=== PATIENT | female | born 1990 | race Caucasian/White ===

== ENCOUNTER 2019-06-02 16:54 | Emergency (ER) | payer BC ==
--- NOTE | 2019-06-02 17:45 | ED ---
Extremity Problem HPI - General Chief complaint: Extremity Problem,Nontraumatic Stated complaint: rt arm pain Time Seen by Provider: 06/02/19 17:06 Source: patient Mode of arrival: ambulatory Limitations: no limitations - History of Present Illness Initial comments: Patient is a 29-year-old female presenting to the emergency Department complains of right shoulder pain 5 days. Patient states she woke up 5 days ago with some right upper shoulder soreness. Patient thought she might a just slept on her shoulder wrong. Over the course of the past week her pain has increased and she is now having radiating pain into her right elbow. Patient denies any falls or trauma to her right shoulder. Denies any previous injuries or surgeries to her right shoulder or elbow. Patient states she does work 2 jobs and uses her arms a lot. Patient states she did call off to her job tonight and is requesting a work note. She denies any fever, chills. Patient has no other complaints at this time. Upon arrival to the ER, vital signs are stable. - Related Data Previous Rx's Medication Instructions Recorded Ciprofloxacin HCl [Cipro] 250 mg PO Q12HR #14 tablet 05/07/14 Phenazopyridine [Pyridium] 100 mg PO TID #6 tablet 05/07/14 Cyclobenzaprine [Flexeril] 5 mg PO BID #10 tablet 06/02/19 Allergies Allergy/AdvReac Type Severity Reaction Status Date / Time No Known Allergies Allergy Verified 06/02/19 16:58 Review of Systems ROS Statement: Those systems with pertinent positive or pertinent negative responses have been documented in the HPI. ROS Other: All systems not noted in ROS Statement are negative. Past Medical History Past Medical History: No Reported History History of Any Multi-Drug Resistant Organisms: None Reported Past Surgical History: No Surgical Hx Reported Past Psychological History: No Psychological Hx Reported Smoking Status: Current every day smoker Past Alcohol Use History: None Reported Past Drug Use History: None Reported General Exam - General Exam Comments Initial Comments: GENERAL: Well-appearing, well-nourished and in no acute distress. HEAD: Atraumatic, normocephalic. EYES: Pupils equal round and reactive to light, extraocular movements intact, sclera anicteric, conjunctiva are normal. ENT: Nares patent, oropharynx clear without exudates. Moist mucous membranes. NECK: Normal range of motion, supple without lymphadenopathy or JVD. LUNGS: Breath sounds clear to auscultation bilaterally and equal. No wheezes rales or rhonchi. HEART: Regular rate and rhythm without murmurs, rubs or gallops. EXTREMITIES: Pain with palpation of the right upper trap along with tightness. Patient has slightly decreased right shoulder range of motion secondary to pain. Patient has full elbow, forearm, wrist range of motion. There is no swelling or deformity seen. There is no overlying erythema. Patient is neurovascular intact. PSYCH: Normal mood, normal affect. SKIN: Warm, Dry, normal turgor, no rashes or lesions noted. Limitations: no limitations Course Vital Signs 06/02/19 06/02/19 06/02/19 16:56 16:58 18:10 Temperature 97.8 F Pulse Rate 72 65 Respiratory 18 20 18 Rate Blood Pressure 102/61 95/66 O2 Sat by Pulse 100 99 Oximetry Medical Decision Making - Medical Decision Making Patient is a 29-year-old female presenting with right upper shoulder pain times one week. No injuries or trauma to the shoulder or no previous surgeries. Patient is requesting a work note. Exam is consistent with a right upper trap muscle spasm. Patient will be given prescription for Flexeril and is told to keep the area. Patient can also take anti-inflammatories for her pain. Patient was given a work note for today. Patient stable for discharge at this time. Patient will follow-up with PCP if symptoms persist. She is agreeable with this plan of care. Case discussed with Dr. Garcia. Disposition Clinical Impression: Right shoulder pain Disposition: HOME SELF-CARE Condition: Stable Instructions (If sedation given, give patient instructions): Shoulder Pain (ED) Additional Instructions: Please return to the Emergency Department if symptoms worsen or any other concerns. Follow-up with PCP as symptoms persist. Continue with Motrin as needed for pain relief. Prescriptions: Cyclobenzaprine [Flexeril] 5 mg PO BID #10 tablet Is patient prescribed a controlled substance at d/c from ED?: No Referrals: None,Stated [Primary Care Provider] - 1-2 days
[2019-06-02 18:12] VITALS: BP 95/66; PULSE 65; RESP 18; TEMP 97.8
== END 2019-06-02 18:11 | disposition home or self-care (01) ==
LOC: EC 16:54
DX: M25.511 Pain in right shoulder (principal); M25.521 Pain in right elbow; F17.200 Nicotine dependence, unspecified, uncomplicated
CPT/HCPCS: 99283

== ENCOUNTER 2020-08-20 08:40 | Emergency (ER) | payer BC, OTHER ==
[2020-08-20 08:49] VITALS: BP 109/57; PULSE 71; RESP 16; TEMP 97.9
[2020-08-20] MEDS ORDERED: KETOROLAC 15 MG/ML 1 ML VIAL IM STA (09:06)
[2020-08-20] MEDS ORDERED: diazePAM 5 MG TAB PO STA (09:06)
--- NOTE | 2020-08-20 09:15 | ED ---
General Adult HPI - General Chief complaint: Back Pain/Injury Stated complaint: back pain Time Seen by Provider: 08/20/20 08:53 Source: patient, RN notes reviewed Mode of arrival: wheelchair Limitations: no limitations - History of Present Illness Initial comments: Patient is a 30-year-old female presented to the emergency room today with a chief complaint of increased lower back pain over the last 2 days. She does admit that she was at work when she was sitting a box down onto a pallet. She states it only approximately 5 pounds persistent spent about felt increased pain to the left lower side of the back. She does admit that she has some radicular pain going all the way down to the left ankle. Denies any bowel or bladder incontinence retention. Denies any saddle anesthesia. Patient states that the pain is worse with movements. She's tried some anti-inflammatories also tried a Flexeril last night several bleed. Patient denies any other complaints or symptoms currently. Patient denies any recent fever, chills, shortness of breath, chest pain, abdominal pain, nausea or vomiting, numbness or tingling, dysuria or hematuria, constipation or diarrhea, headaches or visual changes, or any other complaints. - Related Data Home Medications Medication Instructions Recorded Confirmed Cyclobenzaprine [Flexeril] 5 mg PO ONCE PRN 08/20/20 08/20/20 Ibuprofen [Motrin Ib] 800 mg PO ONCE PRN 08/20/20 08/20/20 Previous Rx's Medication Instructions Recorded Ibuprofen [Motrin] 800 mg PO Q6HR #30 tab 08/20/20 dexAMETHasone [Dexamethasone] 0.75 mg PO DIRECTED #12 tablet 08/20/20 methocarbamoL [Robaxin] 1,000 mg PO TID PRN 5 Days #30 tab 08/20/20 Allergies Allergy/AdvReac Type Severity Reaction Status Date / Time No Known Allergies Allergy Verified 08/20/20 10:20 Review of Systems ROS Statement: Those systems with pertinent positive or pertinent negative responses have been documented in the HPI. ROS Other: All systems not noted in ROS Statement are negative. Past Medical History Past Medical History: No Reported History History of Any Multi-Drug Resistant Organisms: None Reported Past Surgical History: No Surgical Hx Reported Past Psychological History: No Psychological Hx Reported Smoking Status: Current every day smoker Past Alcohol Use History: None Reported Past Drug Use History: None Reported General Exam - General Exam Comments Initial Comments: General: The patient is awake and alert, in no distress, and does not appear acutely ill. Eye: extra-ocular movements are intact. There is normal conjunctiva bilaterally. No signs of icterus. Ears, nose, mouth and throat: There are moist mucous membranes and no oral lesions. Neck: The neck is supple, there is no tenderness or JVD. Respiratory: respirations are non-labored, breath sounds are equal. No wheezes, stridor. Musculoskeletal: Normal appearance of thoracic lumbar spine with no step-off or deformity. Patient does have some tenderness in the lumbar spine beginning at the L2 down to the S1 area. Does have increased paravertebral tenderness on the left side of the lumbar spine. Patient shows good range of motion but pain is reproduced with movements. Neurological: A&O x 3. CN II-XII intact, There are no obvious motor or sensory deficits. Coordination appears grossly intact. Speech is normal. Skin: Skin is warm and dry and no rashes or lesions are noted. Psychiatric: Cooperative, appropriate mood & affect, normal judgment. Limitations: no limitations Course Vital Signs 08/20/20 08:46 Temperature 97.9 F Pulse Rate 71 Respiratory 16 Rate Blood Pressure 109/57 O2 Sat by Pulse 100 Oximetry Medical Decision Making - Medical Decision Making Patient's x-ray reviewed and does show degenerative changes. Results were disc ussed with patient. She does feel better after complications of Valium, Toradol here in the emergency room. Patient will be continued on anti-inflammatories, muscle relaxer, and a course of steroids due to the radicular pain. She is advised to follow with the family physician/orthopedics for further evaluation. Results were discussed with the patient. Patient states understanding and is in agreement. - Lab Data Lab Results 08/20/20 Range/Units 09:41 Urine HCG, Qual Not Detected (Not Detectd) Disposition Clinical Impression: Acute low back pain Disposition: HOME SELF-CARE Condition: Good Instructions (If sedation given, give patient instructions): Acute Low Back Pain (ED) Additional Instructions: Please use medication as discussed. Please follow-up with family doctor/orthopedics in the next 2 days. Please return to emergency room if the symptoms increase or worsen or for any other concerns. Prescriptions: dexAMETHasone [Dexamethasone] 0.75 mg PO DIRECTED #12 tablet Ibuprofen [Motrin] 800 mg PO Q6HR #30 tab methocarbamoL [Robaxin] 1,000 mg PO TID PRN 5 Days #30 tab PRN Reason: pain Is patient prescribed a controlled substance at d/c from ED?: No Referrals: None,Stated [Primary Care Provider] - 1-2 days Rashawn Gupta DO [Doctor of Osteopathic Medicine] - 1-2 days [facility] [NON-STAFF] - 1-2 days Time of Disposition: 10:45
--- NOTE | 2020-08-20 10:27 | XR ---
Lumbar spine HISTORY: Low back pain 5 views of the lumbar spine Lumbar vertebral bodies show preserved height, alignment, and bone mineralization. Some loss of disc height is present at L4-5, sclerosis is present in the posterior elements. Minimal spondylosis is pre sent. IMPRESSION: Degenerative disc disease, consider lumbar MRI
== END 2020-08-20 11:11 | disposition home or self-care (01) ==
LOC: EC 08:40
DX: M54.5 Low back pain (principal); F17.200 Nicotine dependence, unspecified, uncomplicated
CPT/HCPCS: 72100; 81025; 96372; 99283

== ENCOUNTER → 2020-09-29 | Outpatient (CLI) | payer MEDICAID ==
--- NOTE | 2020-09-29 14:07 | MR ---
EXAMINATION TYPE: MR lumbar spine wo con DATE OF EXAM: 09/29/2020 COMPARISON: Lumbar spine x-ray August 20, 2020 HISTORY: Low back pain. Pain for several years and 2 left lower extremity per patient. TECHNIQUE: Multiplanar, multisequence imaging of the lumbar spine is performed without IV contrast. FINDINGS: Sagittal images of the lumbar spine show vertebral body heights and alignment to appear sat isfactory. There is disc desiccation with mild disc space narrowing L4-L5 level otherwise is space he ights and hydration are maintained. Posterior annular tear L4-L5 level.. The conus medullaris is nor mal in position and signal ending at L1 level. The bone marrow signal intensity is within normal rodriguez its. Axial images show T12-L1, L1-L2, L2-L3, and L3-L4 levels all to appear within normal limits. Axial images at L4-L5 level mild facet arthropathy bilaterally. There is central disc protrusion mild ly effacing anterior thecal sac, there is patent bilateral neural foramina. Axial images at L5-S1 level appear within normal limits. Paraspinal muscle bulk is preserved. IMPRESSION: Focal degenerative change L4-L5 level otherwise unremarkable study
== END ==
LOC: RADMRIMAIN 13:01
PROVIDERS: ATTEND Orthopaedic Surgery
DX: M47.816 Spondylosis without myelopathy or radiculopathy, lumbar region (principal)
CPT/HCPCS: 72148

== ENCOUNTER 2020-10-28 11:52 | Day surgery (SDC) | payer OTHER ==
[2020-10-24 12:34] VITALS: BMI 27.4
[2020-10-28 12:15] VITALS: TEMP 98.3
[2020-10-28] MEDS ORDERED: LACTATED RINGERS 1,000 ML IV ONE (12:20)
[2020-10-28] MEDS ORDERED: LIDOCAINE 1% (10MG/ML) FOR IV START INTRADERMA ONE (12:20)
[2020-10-28] MEDS ORDERED: MIDAZOLAM 2 MG/2 ML VIAL ONE (13:00)
[2020-10-28] MEDS ORDERED: DEXAMETHASONE SOD PHOSPHATE 10 MG/ML 1 ML VIAL ONE (13:00)
[2020-10-28] MEDS ORDERED: fentaNYL (PF) 50 MCG/ML 2 ML AMP ONE (13:00)
[2020-10-28] MEDS ORDERED: LACTATED RINGERS 1,000 ML IV SCH (13:00)
[2020-10-28] MEDS ORDERED: IOPAMIDOL M200 10 ML VIAL ONE (13:00)
--- NOTE | 2020-10-28 13:17 | P.PCN ---
Date of Procedure: 10/28/20 Description of Procedure: PREOPERATIVE DIAGNOSIS: Lumbar radiculopathy, lumbar disc herniation . POSTOPERATIVE DIAGNOSIS: Lumbar radiculopathy, lumbar disc herniation. PROCEDURE: 1) left sideided L4-L5 epidural steroid injection under fluoroscopic guidance, 2) Epidurogram SURGEON: Manuel Chase [employer] SUPERVISOR: None ANESTHESIA: Local , and IV sedation: Midazolam 2 mg and fentanyl 50 mcg EBL: None. Specimen removed: None Fluoroscopic image: Saved to electronic medical records PROCEDURE INDICATION: The patient with continued lumbar pain radiating to right side knee area, and intervertebral disc disease without myelopathy that has failed to respond to adequate conservative management. Came here for repeat procedure. PROCEDURE DESCRIPTION: The patient was seen and identified in the preoperative area. Risks, benefits, complications, and alternatives were discussed with the patient. The patient agreed to proceed with the procedure and signed the consent. and vital signs were stable, but his high blood pressure due to anxiety, and not to increase blood pressure medication this morning. Patient was taken to the OR and time out was completed. The patient was placed in the prone position on procedure table and a pillow was placed under the abdomen to reduce lumbar lordosis. The lumbosacral area was prepped with ChloraPrep 1 and draped in the usual sterile fashion. Critical pause was taken. Vital signs were closely monitored during the procedure. Using 20 degree ipsilateral oblique fluoroscopy, the chin of the Lamont dog of L4 was identified, and the skin and deeper tissues just below was localized with 1% lidocaine. 22-guage 5-inch spinal needle were used for the procedure. The needle were guided by fluoroscopy just underneath the chin of the Lamont dog of L4. Under AP fluoroscopy, the needles were advanced to the 6 o'clock position of the L4 pedicle. After negative aspiration of CSF and blood and with no paresthesias, 1 mL of Isovue-200 contrast dye was injected at each level with excellent anterior epidural spread and outlining of the L4 nerve root. After negative aspiration 3 mL of block solution. Block solution contained 10 mg of dexamethasone, 2 mL of normal saline preservative-free. Needle was removed intact, skin was cleansed, and bandages were applied. COMPLICATIONS: None. DISPOSITION : The patient was placed in a supine position and transferred to the recovery area in a stable condition for observation and was discharged from the recovery room after meeting discharge criteria. Home discharge instructions given to the patient by the staff. The patient was reexamined prior to discharge. The patient will schedule follow-up in the clinic in 4 weeks' duration.
[2020-10-28] MEDS ORDERED: IV FLUID CONTINUATION 1,000 ML IV ONE (13:18)
[2020-10-28 13:20] VITALS: RESP 18
[2020-10-28 13:38] VITALS: BP 110/63; PULSE 73
--- NOTE | 2020-10-28 13:56 | FL ---
EXAMINATION TYPE: FL guided pain mgmt statistic DATE OF EXAM: 10/28/2020 HISTORY: Fluoroscopy time 5 seconds of fluoroscopy provided. IMPRESSION: 1. Fluoroscopy time.
== END 2020-10-28 14:06 | disposition home or self-care (01) ==
LOC: ORPAIN 11:52
DX: M51.16 Intervertebral disc disorders with radiculopathy, lumbar region (principal); Z79.1 Long term (current) use of non-steroidal anti-inflammatories (NSAID); Z88.8 Allergy status to other drugs, medicaments and biological substances
CPT/HCPCS: 81025; 64483; J2250; J1100; J3010; Q9966

== ENCOUNTER → 2021-09-21 | Outpatient (CLI) | payer MEDICAID, OTHER ==
[2021-09-21 10:30] VITALS: BP 116/75; PULSE 73; RESP 18; TEMP 97.7
--- NOTE | 2021-09-21 10:59 | P.PN ---
Subjective Progress Note Date: 09/21/21 Principal diagnosis: A 31 yr old female with mother at side with a history of severe and chronic low back pain secondary to lumbar degenerative disc diseases and lumbar spondylosis with facet arthropathy presents today for evaluation status post left TFESI L4- L5 approximately 10 months ago. Patient states she expressed 90% pain relief for 9 months status post procedure. Pain level is currently at 10 out of 10 in intensity, sharp, burning, pressure-type sensation in the left lower aspects of her lumbar spine. Pain is provoked by sitting or standing in one position for periods of 45 minutes or more. Patient presents with her mother at side and is using a walker for pain relief. Pain is alleviated with medications, topicals, injections, ice, heating pad use, physical therapy in 10/05, chiropractic treatments in 08/08, home exercise regimen, use of a walker for ambulation, repositioning, laying down supine, massage by her fianc and rest.. Interventional pain procedures completed include left TFESI L4-L5 #1 Patient is currently on [place] and Flexeril from Dr. Gupta Patient denies any side effects of the medication(s), denies excessive drowsiness or sleepiness, denies suicidal ideation and reports that the current pain medication is helping to control the pain and improve activities of daily living. Patient denies any motor or sensory deficits. Patient denies any fever or night sweats, denies any change in the bowel movements or urination. Physical Examination: -Constitutional: Cooperative. Not in acute distress . -HEENT: Neck is supple. No lymphadenopathy. No thyromegaly. Normal thyroid size. Eyes: No ptosis , no icterus, no photophobia. ENT: No auditory deficits. Normal oropharynx. No Thrush. - Respiratory: Chest clear to auscultations bilaterally. No wheezing. No rhonchi. - Cardiovascular: Regular rate and rhythm. S1 / S2 , no S3 , no S4. - Gastrointestinal: Abdomen soft no tenderness. Bowel sounds positive in all four quadrants. No organomegaly. - Genitourinary: Deferred. - Neurologic: Cranial nerve II to XII intact. No focal neurological deficits. - Psychatric: Alert & oriented x 3. Matching mood & appropriate affect. Judgment and insight intact. - Lymphatic: No Lymphadenopathy. - Musculoskeletal: Cervical spine: Muscle bulk/ tone/ strength in the bilateral upper extremities normal. Facet loading test cervical area positive. Lumbar spine: Motor bulk/ tone/ strength lower extremities , thigh and legs : 5/5 Deep tendon reflexes : Normal Knee Jerk. Normal Ankle Jerk . Vertebral body tenderness to palpation over L4 Lumbar Facet Loading Test positive Straight Leg Raise: positive at 30 degrees right side/ left side Gaenslen's Test positive Sacral spine : Severe tenderness over the Sacroiliac joint: right side / left side Range of motion: Flexion of the lumbar spine <60 degrees Range of motion: Extension of the lumbar spine <20 degrees Gaenslen's Test positive Davonte test: positive right side / left side Assessment and plan: Chronic low back pain secondary to lumbar degenerative disc disease , lumbar spondylosis with facet arthropathy without myelopathy Recommendation of L TFESI L4-L5. May need a series of injections, up to 3 within a six-month period, for optimal pain relief. Denies aspirin or anticoagulants use. Denies medical history of diabetes mellitus. Risks, benefits of procedure discussed and patient verbalized understanding. All patient questions answered MAPS reviewed and it was appropriate. I have spent 31 minutes on patient care today. Dr James was available by phone for the evaluation of this patient. The time was used to review the medical records including relevant urine studies and Prescription history (MAPs), review of the available imaging, evaluation and examination of the patient, coordination of care with the medical staff and if applicable referring physicians, as well as creation of the medical record Objective - Vital Signs Vital signs: Vital Signs Temp 97.7 F 09/21/21 10:17 Pulse 73 09/21/21 10:17 Resp 18 09/21/21 10:17 BP 116/75 09/21/21 10:17 Pulse Ox 97 09/21/21 10:17 PQRS Measure Charge Sheet Mode of Arrival: Ambulatory, Walker - Pain Location Lower Back Non-Pharmacological Interventions: Chiropractic Treatment, Heat, Ice, Physical Therapy, Position/Reposition, Stretching Pharmacological Interventions: Epidural, PRN Medication, Topical Medication PQRS Narrative: Smoking Status Current every day smoker Blood Pressure 116/75 Pain Intensity [Lower Back] 10 Scale Used Numeric (1 - 10) Hx Alcohol Use (MH) No Home Medications: Ambulatory Orders Acetaminophen [Tylenol Extra Strength] 1,000 mg PO DIRECTED PRN 10/24/20 Cyclobenzaprine [Flexeril] 10 mg PO DIRECTED PRN 10/24/20 HYDROcodone/APAP 5-325MG [[place] 5-325] 1 tab PO DIRECTED PRN 10/24/20 Ibuprofen [Motrin Ib] 400 - 800 mg PO DIRECTED PRN 10/24/20
== END ==
LOC: PNWHC3 09:52
PROVIDERS: ATTEND Physician Assistant Medical
DX: M51.36 Other intervertebral disc degeneration, lumbar region (principal); M47.816 Spondylosis without myelopathy or radiculopathy, lumbar region; G89.29 Other chronic pain; F17.200 Nicotine dependence, unspecified, uncomplicated; Z88.8 Allergy status to other drugs, medicaments and biological substances
CPT/HCPCS: 99211

== ENCOUNTER 2021-10-15 12:18 | Day surgery (SDC) | payer OTHER ==
[2021-10-13 12:10] VITALS: BMI 27.4
[2021-10-15 12:35] VITALS: RESP 16; TEMP 98.3
[2021-10-15] MEDS ORDERED: LACTATED RINGERS 1,000 ML IV ONE (12:36)
[2021-10-15] MEDS ORDERED: MIDAZOLAM 2 MG/2 ML VIAL ONE (12:38)
[2021-10-15] MEDS ORDERED: fentaNYL (PF) 50 MCG/ML 2 ML AMP ONE (12:38)
[2021-10-15] MEDS ORDERED: DEXAMETHASONE SOD PHOSPHATE 10 MG/ML 1 ML VIAL ONE (12:38)
[2021-10-15] MEDS ORDERED: IOPAMIDOL M200 10 ML VIAL ONE (12:38)
--- NOTE | 2021-10-15 12:56 | P.PCN ---
Date of Procedure: 10/15/21 Description of Procedure: PREOPERATIVE DIAGNOSIS: Lumbar radiculopathy POSTOPERATIVE DIAGNOSIS: Lumbar radiculopathy PROCEDURE 1. Transforaminal epidural steroid injection under fluoroscopic guidance left L4-L5 2. Lumbar epidurogram IMAGING Fluoroscopy was used, images where saved to the medical record ANESTHESIA: Local with 1% lidocaine 5 ml ; 2 mg of Versed and 100 g of fentanyl PROCEDURE DESCRIPTION / TECHNIQUE: The patient was seen and identified in the preoperative area. Risks, benefits, complications, and alternatives were discussed with the patient. The patient agreed to proceed with the procedure and signed the consent, vital signs were stable prior to the procedure. Patient was taken to the OR and time out was completed. The patient was placed in the prone position on procedure table and a pillow was placed under the abdomen to reduce lumbar lordosis. The lumbosacral area was prepped and draped in the usual sterile fashion. Vital signs were closely monitored during the procedure. Conscious sedation was used. Using oblique fluoroscopy, the chin of the "Lamont dog" at the pedicle and the skin and deeper tissues just below was localized with 1% lidocaine. Subsequently, a 22-gauge 3.5-inch spinal needle was advanced under a tunneled view fluoroscopic guidance just underneath the chin of the "Lamont dog". Under lateral fluoroscopy, the needle was then advanced to the posterior border interforaminal space. After negative aspiration of CSF and blood and with no paresthesias, 1 mL of Omnipaque-240 contrast dye was injected excellent epidu rogram. Subsequently, a solution totalling 2ml of dexamethasone and PFNS was injected after negative aspiration (total of 10mg of dexamethasone was used). The needle was removed intact. COMPLICATIONS: None DISPOSITION: The patient was placed in a supine position and transferred to the recovery area in a stable condition for observation. There was no evidence of lower extremity motor or sensory deficit after the procedure. Patient was discharged from the recovery room after meeting discharge criteria. Home discharge instructions were given to the patient by the staff. The patient was reexamined prior to discharge. Follow up as directed.
[2021-10-15] MEDS ORDERED: IV FLUID CONTINUATION 1,000 ML IV ONE (13:00)
[2021-10-15 13:15] VITALS: BP 106/69; PULSE 66
--- NOTE | 2021-10-15 13:29 | FL ---
Fluoroscopy HISTORY: Pain 6 seconds fluoroscopy time supplied to the referring clinician. 1 intraoperative C-arm images docume nt the procedure. See dictated report from anesthesia.
== END 2021-10-15 13:28 | disposition home or self-care (01) ==
LOC: ORPAIN 12:18
PROVIDERS: ATTEND Hospitalist
DX: M54.16 Radiculopathy, lumbar region (principal); Z91.09 Other allergy status, other than to drugs and biological substances
CPT/HCPCS: 81025; 64483; J2250; J1100; J3010; Q9966

== ENCOUNTER 2021-11-11 19:42 | Emergency (ER) | payer OTHER ==
[2021-11-11 19:59] VITALS: BP 98/68; PULSE 76; RESP 16; TEMP 98.6
--- NOTE | 2021-11-11 21:08 | CT ---
EXAMINATION TYPE: CT brain wo con DATE OF EXAM: 11/11/2021 COMPARISON: None HISTORY: Hit head on shelf this morning. CT DLP: 1059.4 mGycm Automated exposure control for dose reduction was used. Images of the brain obtained without contrast. Ventricles have normal size. There is no mass effect or midline shift. There is no sign of intracrani al hemorrhage. Calvarium is intact. Skull base is intact. There is normal aeration of the mastoid sin uses. IMPRESSION: Negative unenhanced head CT scan.
[2021-11-11] MEDS ORDERED: TOPICAL SKIN ADHESIVE 1 EACH AMP TOPICAL ONE (21:16)
--- NOTE | 2021-11-11 22:35 | ED ---
Head Injury HPI - General Chief complaint: Head Injury Stated complaint: Head Injury,Urgent Care sent pt in Time Seen by Provider: 11/11/21 21:10 Source: patient Mode of arrival: ambulatory Limitations: no limitations - History of Present Illness Initial comments: Patient is a 31-year-old female who presents for evaluation of head injury. Patient states she had her head on a shelf at home. No loss of consciousness. No blood thinner use. No visual symptoms, nausea, or vomiting. No headache, dizziness, or lightheadedness. Patient states she was sent from urgent care because of bump on her forehead from the incident. She was given a tetanus booster at urgent care. Patient also sustained a small laceration. She has no other concerns. - Related Data Home Medications Medication Instructions Recorded Confirmed No Known Home Medications 11/11/21 11/11/21 Allergies/Adverse reactions: Allergies Allergy/AdvReac Type Severity Reaction Status Date / Time methylprednisolone AdvReac Unknown Nausea & Verified 11/11/21 22:00 Vomiting Review of Systems ROS Statement: Those systems with pertinent positive or pertinent negative responses have been documented in the HPI. ROS Other: All systems not noted in ROS Statement are negative. Past Medical History Past Medical History: No Reported History Additional Past Medical History / Comment(s): lower back pain History of Any Multi-Drug Resistant Organisms: None Reported Past Surgical History: Section, Tonsillectomy Additional Past Surgical History / Comment(s): x2. PAIN CLINIC PROCEDURES, IUD. Past Anesthesia/Blood Transfusion Reactions: No Reported Reaction Past Psychological History: No Psychological Hx Reported Smoking Status: Current every day smoker Past Alcohol Use History: None Reported Past Drug Use History: None Reported - Past Family History Mother Family Medical History: No Reported History General Exam Limitations: no limitations General appearance: alert, in no apparent distress Head exam: Present: normocephalic, normal inspection, other (Small hematoma on the left frontal region. 1 cm laceration above the left eyebrow with no active bleeding) Eye exam: Present: normal appearance, PERRL, EOMI. Absent: scleral icterus, conjunctival injection, periorbital swelling Neck exam: Present: normal inspection, full ROM Respiratory exam: Present: normal lung sounds bilaterally. Absent: respiratory distress, wheezes, rales, rhonchi, stridor Cardiovascular Exam: Present: regular rate, normal rhythm, normal heart sounds. Absent: systolic murmur, diastolic murmur, rubs, gallop, clicks GI/Abdominal exam: Present: soft, normal bowel sounds. Absent: distended, tenderness, guarding, rebound, rigid Neurological exam: Present: alert, oriented X3, CN II-XII intact Psychiatric exam: Present: normal affect, normal mood Skin exam: Present: warm, dry, intact, normal color. Absent: rash Course Vital Signs 11/11/21 19:54 Temperature 98.6 F Pulse Rate 76 Respiratory 16 Rate Blood Pressure 98/68 O2 Sat by Pulse 98 Oximetry Medical Decision Making - Medical Decision Making This is a 31-year-old female who presents for evaluation of head injury. Thorough history and examination were performed. Patient is well-appearing and in no apparent distress. No headache, visual symptoms, nausea, or vomiting. This is a low-impact head injury however triage did order a CT of the brain since it was requested by urgent care. Patient does have a small hematoma in the left frontal region. A 1 cm laceration is also noted about the left eyebrow. CT is negative for acute process. Laceration was explored and irrigated extensively. It was well approximated with Exofin. Tetanus booster is not indicated. Patient will be discharged with instruction to follow up with primary care provider. Concussion and hematoma education was provided. Patient verbalizes understanding and is agreeable to this plan. Dr. Mott is my attending. Disposition Clinical Impression: Head injury, Laceration, Hematoma Disposition: HOME SELF-CARE Condition: Good Instructions (If sedation given, give patient instructions): Laceration (ED) Additional Instructions: Please keep wound clean and dry. Return to the emergency department if you experience new, concerning, or worsening symptoms. Is patient prescribed a controlled substance at d/c from ED?: No Referrals: None,Stated [Primary Care Provider] - 1-2 days Time of Disposition: 22:35
== END 2021-11-11 22:57 | disposition home or self-care (01) ==
LOC: EC 19:42
DX: S01.81XA Laceration without foreign body of other part of head, initial encounter (principal); F17.200 Nicotine dependence, unspecified, uncomplicated; W22.8XXA Striking against or struck by other objects, initial encounter
CPT/HCPCS: 12011; 70450; 99283

== ENCOUNTER → 2022-05-12 | Outpatient (CLI) | payer OTHER ==
[2022-05-12 12:50] VITALS: BP 118/77; PULSE 88; RESP 18; TEMP 98.2
--- NOTE | 2022-05-12 14:27 | P.PAINPG ---
Objective - Vital Signs Vital signs: Intake & Output 05/11/22 05/12/22 05/12/22 18:59 06:59 18:59 Weight 79.379 kg PQRS Measure Charge Sheet Comment: A 31 yr old female with a history of severe and chronic low back pain secondary to lumbar degenerative disc diseases and lumbar spondylosis with facet arthropathy without myelopathy presents today for evaluation s/p L TFESI L4-L5 PT states she experienced 90% pain relief x 6 mo s/p procedure. Pain level is currently at 4 /10 in intensity, constant, L lower lumbar spine, sharp in character w shooting towards the L buttock and LLE. Pain is provoked as high as 8/10 by bending, pushing, lifting. Pain is alleviated with PT x 6 wks which ended in Aug 2020, chiropractic treatment x 1 in Aug 2021, heat, ice, medications (Ibu, Tyl), topicals, home guided stretching, home inversion table use for 30 sec periodically, repositioning and rest. Interventional pain procedures completed include L TFESI L4-L5 Patient is currently on Tylenol, Ibuprofen Patient denies any side effects of the medication(s), denies excessive drowsiness or sleepiness, denies suicidal ideation and reports that the current pain medication is helping to control the pain and improve activities of daily living. Patient denies any motor or sensory deficits. Patient denies any fever or night sweats, denies any change in the bowel movements or urination. Physical Examination: -Constitutional: Cooperative. Not in acute distress . - Neurologic: Cranial nerve II to XII intact. No focal neurological deficits. - Psychatric: Alert & oriented x 3. Matching mood & appropriate affect. Judgment and insight intact. - Musculoskeletal: Cervical spine: Muscle bulk/ tone/ strength in the bilateral upper extremities normal Vertebral body tenderness to palpation over Spurling test positive Distraction test positive Facet loading test positive Thoracic spine Muscle bulk / tone/ strength in the bilateral paraspinal muscles normal Vertebral body tender to palpation over Facet loading test positive Lumbar spine: Motor bulk/ tone/ strength lower extremities , thigh and legs : 5/5 Deep tendon reflexes : Normal Knee Jerk. Normal Ankle Jerk . Vertebral body tenderness to palpation over L4 Lumbar Facet Loading Test positive Straight Leg Raise: positive at 30 degrees right side/ left side Gaenslen's Test positive Sacral spine : Severe tenderness over the Sacroiliac joint: right side / left side Range of motion: Flexion of the lumbar spine <60 degrees Range of motion: Extension of the lumbar spine <20 degrees Gaenslen's Test positive Nathan's Test positive Davonte test: positive right side / left side Thigh Thrust Test Sacral Thrust Test Assessment and plan: Chronic low back pain secondary to lumbar degenerative disc disease , lumbar spondylosis with facet arthropathy without myelopathy Recommendation of L TF ALEKSANDR L4-L5 #2. Patient exhibits injections, up to 4 within a 12 month period, for optimal pain relief. Risks, benefits of procedure discussed and pt verbalized understanding. Admits to anticoagulant use or medical history of diabetes. Protocol for discontinuation/continuation of medications maryanne procedure discussed. All patient questions answered I have spent less than 30 minutes on patient care today. Dr James was available by phone for the evaluation of this patient. The time was used to review the medical records including relevant urine studies and Prescription history (MAPs), review of the available imaging, evaluation and examination of the patient, coordination of care with the medical staff and if applicable referring physicians, as well as creation of the medical record PQRS Narrative: Smoking Status Current every day smoker Hx Alcohol Use (MH) No Home Medications: Ambulatory Orders No Known Home Medications 11/11/21 Controlled Substance Measures - Controlled Substance Measures Is patient prescribed a controlled substance at discharge?: No
== END ==
LOC: PNWHC3 12:10
PROVIDERS: ATTEND Specialist
DX: M47.816 Spondylosis without myelopathy or radiculopathy, lumbar region (principal); M51.36 Other intervertebral disc degeneration, lumbar region; G89.29 Other chronic pain; Z79.01 Long term (current) use of anticoagulants; E11.9 Type 2 diabetes mellitus without complications; Z79.4 Long term (current) use of insulin; F17.200 Nicotine dependence, unspecified, uncomplicated; Z88.8 Allergy status to other drugs, medicaments and biological substances
CPT/HCPCS: 99211

== ENCOUNTER 2022-06-15 08:31 | Day surgery (SDC) | payer OTHER ==
[2022-06-09 12:08] VITALS: BMI 27.4
[2022-06-15] MEDS ORDERED: LIDOCAINE 1% (10MG/ML) FOR IV START INTRADERMA PRN (08:44)
[2022-06-15] MEDS ORDERED: LACTATED RINGERS 1,000 ML IV SCH (08:44)
[2022-06-15 08:54] VITALS: RESP 16; TEMP 97
[2022-06-15] MEDS ORDERED: fentaNYL (PF) 50 MCG/ML 2 ML AMP ONE (09:16)
[2022-06-15] MEDS ORDERED: IOPAMIDOL M200 10 ML VIAL ONE (09:16)
[2022-06-15] MEDS ORDERED: DEXAMETHASONE SOD PHOSPHATE 10 MG/ML 1 ML VIAL ONE (09:16)
[2022-06-15] MEDS ORDERED: MIDAZOLAM 2 MG/2 ML VIAL ONE (09:16)
--- NOTE | 2022-06-15 09:29 | P.PCN ---
Date of Procedure: 06/15/22 Procedure(s) Performed: PREOPERATIVE DIAGNOSIS: 1-Lumbar radiculopathy . 2-lumbar degenerative disc disease. 3-lumbar spondylosis with lumbar facet arthropathy POSTOPERATIVE DIAGNOSIS: Same as preoperative diagnoses. PROCEDURE 1. Transforaminal epidural steroid injection under fluoroscopic guidance at left L4-5 level. (Fluoroscopy images stored on file in the radiology Department ) 2. Lumbar epidurogram . ANESTHESIA: Local with 1% lidocaine 3 ml , moderate sedation with intravenous Versed 2 mg and fentanyle 100 micrograms. Sedation start time : 0 918 . Sedation. stop time : 0 926 . EBL: Minimal PROCEDURE INDICATION: The patient with low back pain and radiculopathy symptoms unresponsive to conservative treatment. PROCEDURE DESCRIPTION / TECHNIQUE: The patient was seen and identified in the preoperative area. Risks, benefits, complications, and alternatives were discussed with the patient. The patient agreed to proceed with the procedure and signed the consent. IV was started, and vital signs were stable. Patient was taken to the OR and time out was completed. The patient was placed in the prone position on procedure table and a pillow was placed under the abdomen to reduce lumbar lordosis. The lumbosacral area was prepped and draped in the usual sterile fashion. Critical pause was taken. Vital signs were closely monitored during the procedure. Conscious sedation was used during the procedure to decrease patient s anxiety. Using oblique fluoroscopy, the chin of the `[place]iay dog at left L4-5 level was identified, and the skin and deeper tissues just below was localized with 1% lidocaine. Subsequently, a 22-gauge 3.5-inch spinal needle was advanced under a tunneled view fluoroscopic guidance just underneath the chin of the `[place]ay dog at the left L4-5 Under lateral fluoroscopy, the needle was then advanced to the posterior border of the interforaminal space. After negative aspiration of CSF and blood and with no paresthesias, 1 mL Isovue 200 contrast dye was injected excellent epidurogram and outlining of the nerve root Subsequently, 3 mL of block solution containing 20 mg Dexamethasone and 1 mL of 0.9% normal saline PF was injected. Needle was removed . At the end of the procedure, skin was cleansed, and bandages were applied. COMPLICATIONS:none DISPOSITION / PLANS: The patient was placed in a supine position and transferred to the recovery area in a stable condition for observation. There was no evidence of lower extremity motor or sensory deficit after the procedure. Patient was discharged from the recovery room after meeting discharge criteria. Home discharge instructions were given to the patient by the staff. The patient was reexamined prior to discharge.
[2022-06-15] MEDS ORDERED: IV FLUID CONTINUATION 1,000 ML IV ONE (09:31)
--- NOTE | 2022-06-15 09:38 | FL ---
EXAMINATION TYPE: FL guided pain mgmt statistic DATE OF EXAM: 06/15/2022 CLINICAL HISTORY: Low back pain. TECHNIQUE: Fluoroscopy. COMPARISON: None. FINDINGS: Fluoroscopic guidance was provided during pain relief procedure performed by Dr. James . A total of 5 seconds of fluoroscopic time was utilized during the procedure and 1 spot images are acquired. Single image acquired shows needle localization at L4 level. IMPRESSION: As Above.
[2022-06-15 09:46] VITALS: BP 96/64; PULSE 61
== END 2022-06-15 10:07 | disposition home or self-care (01) ==
LOC: ORPAIN 08:31
PROVIDERS: ATTEND Specialist
DX: M51.16 Intervertebral disc disorders with radiculopathy, lumbar region (principal); M47.26 Other spondylosis with radiculopathy, lumbar region; Z88.0 Allergy status to penicillin
CPT/HCPCS: 64483; J2250; J1100; J3010; Q9966

== ENCOUNTER 2023-08-31 08:38 | Emergency (ER) | payer OTHER ==
--- NOTE | 2023-08-31 09:03 | ED ---
General Adult HPI - General Chief complaint: Upper Respiratory Infection Stated complaint: Cough Time Seen by Provider: 08/31/23 08:53 Source: patient, RN notes reviewed Mode of arrival: ambulatory Limitations: no limitations - History of Present Illness Initial comments: Patient is a pleasant 33-year-old female present to the emergency department with cough and congestion. Onset of symptoms was a couple days ago. Patient has nasal and chest congestion. Patient has been coughing. Occasional yellow sputum. Patient did have fever last night. Patient took Tylenol and Motrin. Patient has had some myalgias. Patient does have history of similar symptoms previously associated with pneumonia or bronchitis. - Related Data Home Medications Medication Instructions Recorded Confirmed Acetaminophen [Tylenol Extra 1,000 mg PO DIRECTED PRN 06/09/22 06/15/22 Strength] Ibuprofen [Motrin Ib] 200 mg PO Q8H PRN 06/09/22 06/15/22 Previous Rx's Medication Instructions Recorded Albuterol Inhaler [Ventolin Hfa 2 puff INHALATION Q4HR PRN #1 each 08/31/23 Inhaler] Allergies Allergy/AdvReac Type Severity Reaction Status Date / Time methylprednisolone AdvReac Unknown Nausea & Verified 08/31/23 08:46 Vomiting Review of Systems ROS Statement: Those systems with pertinent positive or pertinent negative responses have been documented in the HPI. ROS Other: All systems not noted in ROS Statement are negative. Constitutional: Reports: fever, chills Eyes: Denies: eye pain ENT: Reports: congestion Respiratory: Reports: cough, dyspnea Endocrine: Reports: fatigue Past Medical History Past Medical History: No Reported History Additional Past Medical History / Comment(s): herniated disks L3,L5,S1 History of Any Multi-Drug Resistant Organisms: None Reported Past Surgical History: Section, Tonsillectomy Additional Past Surgical History / Comment(s): x2, PAIN CLINIC PROCEDURES, IUD. Past Anesthesia/Blood Transfusion Reactions: No Reported Reaction Past Psychological History: No Psychological Hx Reported Smoking Status: Current every day smoker Past Alcohol Use History: Occasional Past Drug Use History: Marijuana - Past Family History Mother Family Medical History: No Reported History General Exam Limitations: no limitations General appearance: alert, in no apparent distress Head exam: Present: normocephalic Eye exam: Present: normal appearance ENT exam: Present: other (Pharyngeal cobblestoning) Neck exam: Present: normal inspection. Absent: lymphadenopathy Respiratory exam: Present: normal lung sounds bilaterally Cardiovascular Exam: Present: regular rate, normal rhythm GI/Abdominal exam: Present: soft. Absent: tenderness Extremities exam: Present: normal inspection Neurological exam: Present: alert Psychiatric exam: Present: normal affect, normal mood Skin exam: Present: normal color Course Vital Signs 08/31/23 08:42 Temperature 98.4 F Pulse Rate 68 Respiratory 18 Rate Blood Pressure 111/76 O2 Sat by Pulse 97 Oximetry Medical Decision Making - Medical Decision Making Was pt. sent in by a medical professional or institution (, PA, BRIM ROUNDER, urgent care, hospital, or senior living...) When possible be specific @ -No Did you speak to anyone other than the patient for history (EMS, parent, family, police, friend...)? What history was obtained from this source @ -No Did you review nursing and triage notes (agree or disagree)? Why? @ -I reviewed and agree with nursing and triage notes Were old charts reviewed (outside hosp., previous admission, EMS record, old EKG, old radiological studies, urgent care reports/EKG's, senior living records)? Report findings @ -No old charts were reviewed Differential Diagnosis (chest pain, altered mental status, abdominal pain women, abdominal pain men, vaginal bleeding, weakness, fever, dyspnea, syncope, headache, dizziness, GI bleed, back pain, seizure, CVA, palpatations, mental health, musculoskeletal)? @ -Differential Dyspnea: Coronary syndrome, arrhythmia, tamponade, asthma, COPD, pulmonary embolism, pneumonia, pneumothorax, pulmonary effusion, anaphylaxis, diabetic ketoacidosis, flailed chest, pulmonary contusion, diaphragmatic rupture, anemia, neuromuscular, this is not meant to be an all-inclusive list. EKG interpreted by me (3pts min.). @ -As above X-rays interpreted by me (1pt min.). @ -Chest x-ray shows no acute process CT interpreted by me (1pt min.). @ -None done U/S interpreted by me (1pt. min.). @ -None done What testing was considered but not performed or refused? (CT, X-rays, U/S, labs)? Why? @ -None What meds were considered but not given or refused? Why? @ -None Did you discuss the management of the patient with other professionals (professionals i.e. , PA, BRIM R[employer]ER, lab, RT, psych nurse, licensed social worker, estimate clerk, teacher, financial administration officer, pillowcase folder)? Give summary @ -No Was smoking cessation discussed for >3mins.? @ -No Was critical care preformed (if so, how long)? @ -No Were there social determinants of health that impacted care today? How? (Homelessness, low income, unemployed, alcoholism, drug addiction, transpor tation, low edu. Level, literacy, decrease access to med. care, detention, rehab)? @ -No Was there de-escalation of care discussed even if they declined (Discuss DNR or withdrawal of care, Hospice)? DNR status @ -No What co-morbidities impacted this encounter? (DM, HTN, Smoking, COPD, CAD, Cancer, CVA, ARF, Chemo, Hep., AIDS, mental health diagnosis, sleep apnea, morbid obesity)? @ -None Was patient admitted / discharged? Hospital course, mention meds given and route, prescriptions, significant lab abnormalities, going to OR and other pertinent info. @ -Patient reevaluated and updated. Patient will be discharged. Symptoms greater than 2 days therefore patient is not a candidate for Tamiflu. Undiagnosed new problem with uncertain prognosis? @ -No Drug Therapy requiring intensive monitoring for toxicity (Heparin, Nitro, Insulin, Cardizem)? @ -No Were any procedures done? @ -No Diagnosis/symptom? @ -Influenza, viral sinusitis Acute, or Chronic, or Acute on Chronic? @ -Acute, acute Uncomplicated (without systemic symptoms) or Complicated (systemic symptoms)? @ -Default Side effects of treatment? @ -No Exacerbation, Progression, or Severe Exacerbation? @ -No Poses a threat to life or bodily function? How? (Chest pain, [place], [place], pneumonia, PE, COPD, DKA, ARF, appy, cholecystitis, CVA, Diverticulitis, Homicidal, Suicidal, threat to staff... and all critical care pts) @ -No - Lab Data Lab Results 08/31/23 Range/Units 09:25 Influenza Type A (PCR) Detected A (Not Detectd) Influenza Type B (PCR) Not Detected (Not Detectd) RSV (PCR) Not Detected (Not Detectd) SARS-CoV-2 (PCR) Not Detected (Not Detectd) Disposition Clinical Impression: Influenza Disposition: HOME SELF-CARE Condition: Stable Instructions (If sedation given, give patient instructions): Upper Respiratory Infection (ED), Influenza (ED) Additional Instructions: Please do follow-up with your primary care physician in the next day or 2 for recheck. Prescription for inhaler has been sent to pharmacy. [id number] Tylenol or Motrin as needed. [id number] vitamin C, vitamin D, and zinc. Return for difficulty breathing, worsening or changing symptoms or other concerns. Prescriptions: Albuterol Inhaler [Ventolin Hfa Inhaler] 2 puff INHALATION Q4HR PRN #1 each PRN Reason: Dyspnea Is patient prescribed a controlled substance at d/c from ED?: No Referrals: Jefe Arguelles MD [STAFF PHYSICIAN] - 1-2 days Time of Disposition: 10:24
[2023-08-31 09:07] VITALS: RESP 18
--- NOTE | 2023-08-31 09:25 | XR ---
EXAMINATION TYPE: XR chest 2V DATE OF EXAM: 08/31/2023 9:11 AM CLINICAL INDICATION:Female, 33 years old with history of cough; COMPARISON: None TECHNIQUE: XR chest 2V Frontal and lateral views of the chest. FINDINGS: Lungs/Pleura: There is no evidence of pleural effusion, focal consolidation, or pneumothorax. Pulmonary vascularity: Unremarkable. Heart/mediastinum: Cardiomediastinal silhouette is unremarkable. Musculoskeletal: No acute osseous pathology. IMPRESSION: No acute cardiopulmonary disease/process.
[2023-08-31 10:42] VITALS: BP 106/72; PULSE 72; TEMP 98.5
== END 2023-08-31 10:37 | disposition home or self-care (01) ==
LOC: EC 08:38
DX: J10.1 Influenza due to other identified influenza virus with other respiratory manifestations (principal); F17.200 Nicotine dependence, unspecified, uncomplicated; F12.90 Cannabis use, unspecified, uncomplicated; Z20.822 Contact with and (suspected) exposure to COVID-19; Z88.8 Allergy status to other drugs, medicaments and biological substances
CPT/HCPCS: 71046; 87636; 99283

== ENCOUNTER 2023-12-22 19:38 | Emergency (ER) | payer OTHER ==
[2023-12-22 19:44] VITALS: RESP 18; TEMP 97.5
[2023-12-22] MEDS: LIDOCAINE 4% PATCH TOPICAL ONE (20:27)
[2023-12-22] MEDS: HYDROmorphone 1 MG/ML 1 ML SYRINGE IM STA (20:28)
[2023-12-22] MEDS: KETOROLAC 15 MG/ML 1 ML VIAL IM STA (20:29)
--- NOTE | 2023-12-22 21:27 | ED ---
Back Pain HPI - General Chief Complaint: Back Pain/Injury Stated Complaint: Back Pain, Herniated Disc Time Seen by Provider: 12/22/23 20:08 Source: patient Limitations: no limitations - History of Present Illness Initial Comments: 33-year-old female presenting with chief complaint of back pain. Patient has history of chronic back pain, she has known herniated disks. She has previously seen Dr. Gupta and is scheduled to be seen in the office next week. She has had a flareup of her chronic pain today, she has been on her feet at work today. No known injury or trauma. No loss of bowel or bladder control or saddle paresthesia. No fevers. No IV drug use. No dysuria, hematuria, flank pain. This is lower back pain but is predominantly on the left side. - Related Data Home Medications Medication Instructions Recorded Confirmed Acetaminophen [Tylenol Extra 1,000 mg PO DIRECTED PRN 06/09/22 06/15/22 Strength] Ibuprofen [Motrin Ib] 200 mg PO Q8H PRN 06/09/22 06/15/22 Previous Rx's Medication Instructions Recorded Albuterol Inhaler [Ventolin Hfa 2 puff INHALATION Q4HR PRN #1 each 08/31/23 Inhaler] Cyclobenzaprine [Flexeril] 10 mg PO TID PRN #15 tab 12/22/23 methylPREDNISolone Dose Pack 4 mg PO DIRECTED #1 packet 12/22/23 [Medrol Dose Pack] Allergies Allergy/AdvReac Type Severity Reaction Status Date / Time methylprednisolone AdvReac Unknown Nausea & Verified 12/22/23 19:42 Vomiting Review of Systems ROS Statement: Those systems with pertinent positive or pertinent negative responses have been documented in the HPI. ROS Other: All systems not noted in ROS Statement are negative. Past Medical History Past Medical History: No Reported History Additional Past Medical History / Comment(s): herniated disks L3,L5,S1 History of Any Multi-Drug Resistant Organisms: None Reported Past Surgical History: Section, Tonsillectomy Additional Past Surgical History / Comment(s): x2, PAIN CLINIC PROCEDURES, IUD. Past Anesthesia/Blood Transfusion Reactions: No Reported Reaction Past Psychological History: No Psychological Hx Reported Smoking Status: Current every day smoker Past Alcohol Use History: Occasional Past Drug Use History: Marijuana - Past Family History Mother Family Medical History: No Reported History General Exam Limitations: no limitations General appearance: alert, in no apparent distress Head exam: Present: atraumatic, normocephalic Eye exam: Present: normal appearance, EOMI Neck exam: Present: normal inspection Respiratory exam: Absent: respiratory distress Cardiovascular Exam: Present: regular rate Back exam: Present: normal inspection, tenderness Neurological exam: Present: alert, oriented X3 Psychiatric exam: Present: normal affect, normal mood Skin exam: Present: normal color Course Vital Signs 12/22/23 12/22/23 19:39 21:32 Temperature 97.5 F L Pulse Rate 77 66 Respiratory 18 18 Rate Blood Pressure 118/66 106/69 O2 Sat by Pulse 100 100 Oximetry Medical Decision Making - Medical Decision Making Was pt. sent in by a medical professional or institution (, PA, COMMUNICATION SPECIALIST, urgent care, hospital, or fci...) When possible be specific @ -No Did you speak to anyone other than the patient for history (EMS, parent, family, police, friend...)? What history was obtained from this source @ -No Did you review nursing and triage notes (agree or disagree)? Why? @ -I reviewed and agree with nursing and triage notes Were old charts reviewed (outside hosp., previous admission, EMS record, old EKG, old radiological studies, urgent care reports/EKG's, fci records)? Report findings @ -No old charts were reviewed Differential Diagnosis (chest pain, altered mental status, abdominal pain women, abdominal pain men, vaginal bleeding, weakness, fever, dyspnea, syncope, headache, dizziness, GI bleed, back pain, seizure, CVA, palpatations, mental health, musculoskeletal)? @ -MDM Differential Back Pain: Strain, zoster, cauda equina syndrome, epidural abscess, vertebral osteomyelitis, discitis, fracture, subluxation, disc herniation, DJD, spinal s tenosis, dissection, AAA, pancreatitis, peptic ulcer disease, pyelonephritis, kidney stone this is not meant to be an all-inclusive list. EKG interpreted by me (3pts min.). @ -As above X-rays interpreted by me (1pt min.). @ -None done CT interpreted by me (1pt min.). @ -None done U/S interpreted by me (1pt. min.). @ -None done What testing was considered but not performed or refused? (CT, X-rays, U/S, labs)? Why? @ -None What meds were considered but not given or refused? Why? @ -None Did you discuss the management of the patient with other professionals (professionals i.e. , PA, COMMUNICATION SPECIALIST, lab, RT, psych nurse, social media campaign manager, car head liner installer, teacher, project control officer, case management manager)? Give summary @ -No Was smoking cessation discussed for >3mins.? @ -No Was critical care preformed (if so, how long)? @ -No Were there social determinants of health that impacted care today? How? (Homelessness, low income, unemployed, alcoholism, drug addiction, transportation, low edu. Level, literacy, decrease access to med. care, senior care, rehab)? @ -No Was there de-escalation of care discussed even if they declined (Discuss DNR or withdrawal of care, Hospice)? DNR status @ -No What co-morbidities impacted this encounter? (DM, HTN, Smoking, COPD, CAD, Cancer, CVA, ARF, Chemo, Hep., AIDS, mental health diagnosis, sleep apnea, morbid obesity)? @ -None Was patient admitted / discharged? Hospital course, mention meds given and route, prescriptions, significant lab abnormalities, going to OR and other pertinent info. @ -33-year-old female presenting with chief complaint of lower back pain. This is a flareup of her chronic back pain. No red flag symptoms. She is given pain medication and on reassessment she reports significant improvement. Patient will follow-up with her orthopedist at her appointment scheduled for next week. Discharged. Follow-up with PCP. Report back to ER with any new or worsening symptoms. Discussed return parameters and answered all questions. Patient conveyed verbal understanding and agreed to the plan. I discussed this case in detail with my attending Dr. Veloz Undiagnosed new problem with uncertain prognosis? @ -No Drug Therapy requiring intensive monitoring for toxicity (Heparin, Nitro, Insulin, Cardizem)? @ -No Were any procedures done? @ -No Diagnosis/symptom? @ -Lumbar back pain Acute, or Chronic, or Acute on Chronic? @ -Acute on chronic Uncomplicated (without systemic symptoms) or Complicated (systemic symptoms)? @ -Uncomplicated Side effects of treatment? @ -No Exacerbation, Progression, or Severe Exacerbation? @ -No Poses a threat to life or bodily function? How? (Chest pain, [place], [place], pneumonia, PE, COPD, DKA, ARF, appy, cholecystitis, CVA, Diverticulitis, Homicidal, Suicidal, threat to staff... and all critical care pts) @ -Unlikely Disposition Clinical Impression: Lumbar back pain Disposition: HOME SELF-CARE Condition: Good Instructions (If sedation given, give patient instructions): Acute Low Back Pain (ED) Additional Instructions: Follow-up with PCP and orthopedics. Report back to ER with any new or worsening symptoms. Take Motrin and Tylenol as needed for pain control. Do not take cyclobenzaprine before driving or operating heavy machinery as it may cause drowsiness Prescriptions: Cyclobenzaprine [Flexeril] 10 mg PO TID PRN #15 tab PRN Reason: Spasms methylPREDNISolone Dose Pack [Medrol Dose Pack] 4 mg PO DIRECTED #1 packet Is patient prescribed a controlled substance at d/c from ED?: No Referrals: None,Stated [Primary Care Provider] - 1-2 days Rashawn Gupta DO [Doctor of Osteopathic Medicine] - 1-2 days Time of Disposition: 21:25
[2023-12-22 21:33] VITALS: BP 106/69; PULSE 66
== END 2023-12-22 21:32 | disposition home or self-care (01) ==
LOC: EC 19:38
DX: M54.50 Low back pain, unspecified (principal); F17.200 Nicotine dependence, unspecified, uncomplicated; F12.90 Cannabis use, unspecified, uncomplicated; Z88.8 Allergy status to other drugs, medicaments and biological substances
CPT/HCPCS: 99283; 96372 ×2; J1170; J1885

== ENCOUNTER 2024-07-21 20:59 | Emergency (ER) | payer OTHER ==
[2024-07-21 21:06] VITALS: RESP 18; TEMP 98.3
--- NOTE | 2024-07-21 21:29 | ED ---
Back Pain HPI - General Chief Complaint: Back Pain/Injury Stated Complaint: Back Pain Time Seen by Provider: 07/21/24 21:24 Source: patient, EMS, RN notes reviewed Limitations: no limitations - History of Present Illness Initial Comments: 34-year-old female presenting to the ER with chief complaint of low back pain x 12 hours. States she was squatted down to grab the laundry basket and felt a sudden, sharp pain in the lower back when she stood up. States she has a history of a herniated disc and this feels similar to previous flareups. States pain is worse with movement and radiates down left leg. Has not tried any medication to alleviate symptoms. She previously followed with Dr. Gupta for herniated disks in lumbar spine, has not followed up in approximately 6 months. Denies bowel/bladder incontinence, saddle anesthesia, or numbness, tingling, weakness in bilateral lower extremities. - Related Data Home Medications Medication Instructions Recorded Confirmed Acetaminophen [Tylenol Extra 1,000 mg PO DIRECTED PRN 06/09/22 06/15/22 Strength] Ibuprofen [Motrin Ib] 200 mg PO Q8H PRN 06/09/22 06/15/22 Previous Rx's Medication Instructions Recorded Albuterol Inhaler [Ventolin Hfa 2 puff INHALATION Q4HR PRN #1 each 08/31/23 Inhaler] Cyclobenzaprine [Flexeril] 10 mg PO TID PRN #15 tab 12/22/23 methylPREDNISolone Dose Pack 4 mg PO DIRECTED #1 packet 12/22/23 [Medrol Dose Pack] Cyclobenzaprine [Flexeril] 10 mg PO TID PRN #15 tab 07/21/24 Lidocaine 4% Patch 1 patch TOPICAL DAILY PRN 7 Days 07/21/24 #7 patch Allergies Allergy/AdvReac Type Severity Reaction Status Date / Time methylprednisolone AdvReac Unknown Nausea & Verified 07/21/24 21:02 Vomiting tramadol [From Ultram] AdvReac Nausea & Verified 07/21/24 23:01 Vomiting Review of Systems ROS Statement: Those systems with pertinent positive or pertinent negative responses have been documented in the HPI. ROS Other: All systems not noted in ROS Statement are negative. Past Medical History Past Medical History: No Reported History Additional Past Medical History / Comment(s): herniated disks L3,L5,S1 History of Any Multi-Drug Resistant Organisms: None Reported Past Surgical History: Section, Tonsillectomy Additional Past Surgical History / Comment(s): x2, PAIN CLINIC PROCEDURES, IUD. Past Anesthesia/Blood Transfusion Reactions: No Reported Reaction Past Psychological History: No Psychological Hx Reported Smoking Status: Current every day smoker Past Alcohol Use History: Occasional Past Drug Use History: Marijuana - Past Family History Mother Family Medical History: No Reported History General Exam Limitations: no limitations General appearance: alert, in no apparent distress Head exam: Present: atraumatic, normocephalic, normal inspection Eye exam: Present: normal appearance, PERRL, EOMI. Absent: scleral icterus, conjunctival injection, periorbital swelling Respiratory exam: Present: normal lung sounds bilaterally. Absent: respiratory distress, wheezes, rales, rhonchi, stridor Cardiovascular Exam: Present: regular rate, normal rhythm, normal heart sounds. Absent: systolic murmur, diastolic murmur, rubs, gallop, clicks GI/Abdominal exam: Present: soft, normal bowel sounds. Absent: distended, tenderness, guarding, rebound, rigid Back exam: Present: normal inspection, full ROM (Pain with extension and flexion), paraspinal tenderness (Diffuse bilateral paraspinal lumbar tenderness), other (Full strength and range of motion of bilateral hips. No saddle anesthesia. Full sensation and DP pulses bilaterally). Absent: tenderness (No point tenderness), CVA tenderness (R), CVA tenderness (L), yeyo tebral tenderness Neurological exam: Present: alert, oriented X3 Psychiatric exam: Present: normal affect, normal mood Skin exam: Present: warm, dry, intact, normal color. Absent: rash Course Vital Signs 07/21/24 07/21/24 21:03 22:56 Temperature 98.3 F Pulse Rate 83 70 Respiratory 18 18 Rate Blood Pressure 109/72 110/59 O2 Sat by Pulse 97 96 Oximetry Medical Decision Making - Medical Decision Making Was pt. sent in by a medical professional or institution (, PA, ENDODONTIST, urgent care, hospital, or group home...) When possible be specific @ -No Did you speak to anyone other than the patient for history (EMS, parent, family, police, friend...)? What history was obtained from this source @ -No Did you review nursing and triage notes (agree or disagree)? Why? @ -I reviewed and agree with nursing and triage notes Were old charts reviewed (outside hosp., previous admission, EMS record, old EKG, old radiological studies, urgent care reports/EKG's, group home records)? Report findings @ -No old charts were reviewed Differential Diagnosis (chest pain, altered mental status, abdominal pain women, abdominal pain men, vaginal bleeding, weakness, fever, dyspnea, syncope, headache, dizziness, GI bleed, back pain, seizure, CVA, palpatations, mental health, musculoskeletal)? @ -Differential Back Pain: Strain, zoster, cauda equina syndrome, epidural abscess, vertebral osteomyelitis, discitis, fracture, subluxation, disc herniation, DJD, spinal stenosis, dissection, AAA, pancreatitis, peptic ulcer disease, pyelonephritis, kidney stone, this is not meant to be an all-inclusive list. EKG interpreted by me (3pts min.). @ -None X-rays interpreted by me (1pt min.). @ -X-ray lumbar spine reveals no acute process, degenerative changes CT interpreted by me (1pt min.). @ -None done U/S interpreted by me (1pt. min.). @ -None done What testing was considered but not performed or refused? (CT, X-rays, U/S, labs)? Why? @ -None What meds were considered but not given or refused? Why? @ -None Did you discuss the management of the patient with other professionals (professionals i.e. , PA, ENDODONTIST, lab, RT, psych nurse, social media coordinator, cop, teacher, planned giving officer, nurse case manager)? Give summary @ -No Was smoking cessation discussed for >3mins.? @ -No Was critical care preformed (if so, how long)? @ -No Were there social determinants of health that impacted care today? How? (Homelessness, low income, unemployed, alcoholism, drug addiction, transportation, low edu. Level, literacy, decrease access to med. care, senior care, rehab)? @ -No Was there de-escalation of care discussed even if they declined (Discuss DNR or withdrawal of care, Hospice)? DNR status @ -No What co-morbidities impacted this encounter? (DM, HTN, Smoking, COPD, CAD, Cancer, CVA, ARF, Chemo, Hep., AIDS, mental health diagnosis, sleep apnea, morbid obesity)? @ -None Was patient admitted / discharged? Hospital course, mention meds given and route, prescriptions, significant lab abnormalities, going to OR and other perti nent info. @ -Discharge. 34-year-old female presenting for low back pain x 12 hours. Neurovascularly intact. No red flag symptoms. Patient is provided with analgesics. X-ray lumbar spine reveals no acute fracture or traumatic subluxation. Urine negative. Results discussed with patient. Upon reevaluation, patient reports improvement of symptoms. Appropriate return precautions and follow-up care discussed. Case was discussed with my ED attending Dr. Fajardo. Undiagnosed new problem with uncertain prognosis? @ -No Drug Therapy requiring intensive monitoring for toxicity (Heparin, Nitro, Insulin, Cardizem)? @ -No Were any procedures done? @ -No Diagnosis/symptom? @ -Low back strain Acute, or Chronic, or Acute on Chronic? @ -Acute Uncomplicated (without systemic symptoms) or Complicated (systemic symptoms)? @ -Uncomplicated Side effects of treatment? @ -No Exacerbation, Progression, or Severe Exacerbation? @ -No Poses a threat to life or bodily function? How? (Chest pain, [place], [place], pneumonia, PE, COPD, DKA, ARF, appy, cholecystitis, CVA, Diverticulitis, Homicidal, Suicidal, threat to staff... and all critical care pts) @ -No - Lab Data Lab Results 07/21/24 Range/Units 21:54 Urine HCG, Qual Not Detected (Not Detectd) Disposition Clinical Impression: Low back strain Disposition: HOME SELF-CARE Condition: Stable Instructions (If sedation given, give patient instructions): Acute Low Back Jerel n (ED) Additional Instructions: Take Tylenol threes, muscle relaxers, and lidocaine patches as needed for pain. Follow-up with Dr. Gupta as discussed. Please return to the Emergency Department if symptoms worsen or any other concerns. Prescriptions: Cyclobenzaprine [Flexeril] 10 mg PO TID PRN #15 tab PRN Reason: Muscle Spasm Lidocaine 4% Patch 1 patch TOPICAL DAILY PRN 7 Days #7 patch PRN Reason: Pain Is patient prescribed a controlled substance at d/c from ED?: No Referrals: None,Stated [Primary Care Provider] - 1-2 days Time of Disposition: 23:03
[2024-07-21] MEDS: KETOROLAC 15 MG/ML 1 ML VIAL IM STA (21:32)
[2024-07-21] MEDS: LIDOCAINE 4% PATCH TOPICAL ONE (21:33)
[2024-07-21] MEDS: ORPHENADRINE 30 MG/ML 2 ML VIAL IM STA (21:33)
--- NOTE | 2024-07-21 22:05 | XR ---
EXAMINATION TYPE: XR lumbar spine 2 or 3V DATE OF EXAM: 07/21/2024 9:58 PM COMPARISON: Previous lumbar spine radiograph 08/20/2020. CLINICAL INDICATION: Female, 34 years old with history of low back pain; [facility] TECHNIQUE: XR lumbar spine 2 or 3V - Frontal, lateral and coned in L5-S1 lateral views of the spine. FINDINGS: 5 lumbar type vertebral bodies are present for the purposes of this examination. No acute f racture or traumatic subluxation. Lumbar spine vertebral body heights appear maintained. Multilevel i ntervertebral disc space loss, most pronounced at L4-L5. Multilevel facet arthropathy, most pronounce d at L4-5 and L5-S1. No evidence of spondylolysis or significant spondylolisthesis. IMPRESSION: 1. No acute fracture or traumatic subluxation. 2. Lumbar spine degenerative changes as above. [facility], , 07/21/2024 10:03 PM
[2024-07-21 22:58] VITALS: BP 110/59; PULSE 70
[2024-07-21] MEDS: HYDROmorphone 1 MG/ML 1 ML SYRINGE IVP STA (22:58)
[2024-07-21] MEDS: ACET/COD 300 MG/30 MG STARTER PACK 6 TAB BTL PO STA (23:08)
== END 2024-07-21 23:20 | disposition home or self-care (01) ==
LOC: EC 20:59
DX: S39.012A Strain of muscle, fascia and tendon of lower back, initial encounter (principal); F17.200 Nicotine dependence, unspecified, uncomplicated; Z88.5 Allergy status to narcotic agent; X58.XXXA Exposure to other specified factors, initial encounter
CPT/HCPCS: 81025; 72100; 99284; 96374; 96372 ×2; J2360; J1171; J1885